=== PATIENT | female | born 1980 | race Caucasian/White ===

== ENCOUNTER 2016-11-16 19:19 | Emergency (ER) | payer MEDICAID ==
[~2016-11-16] VITALS: Ht 157.5 cm; Wt 102.0 kg
[2016-11-16 19:31] VITALS: BP 135/91
== END 2016-11-16 21:26 | disposition home or self-care (01) ==
LOC: ED 19:19
DX: J06.9 Acute upper respiratory infection, unspecified (principal); E11.9 Type 2 diabetes mellitus without complications; Z79.84 Long term (current) use of oral hypoglycemic drugs

== ENCOUNTER 2017-11-14 16:21 | Emergency (ER) | payer MEDICAID ==
[~2017-11-14] VITALS: Ht 154.9 cm; Wt 98.0 kg
[2017-11-14 17:09] VITALS: Ht 154.9 cm; Wt 98.0 kg
[2017-11-14 17:47] VITALS: BP 137/92
== END 2017-11-14 17:47 | disposition home or self-care (01) ==
LOC: ED 16:21
DX: E11.9 Type 2 diabetes mellitus without complications (principal); R03.0 Elevated blood-pressure reading, without diagnosis of hypertension; Z90.49 Acquired absence of other specified parts of digestive tract; Z76.0 Encounter for issue of repeat prescription